=== PATIENT | female | born 1975 | race Caucasian/White ===

== ENCOUNTER 2018-11-11 07:18 | Outpatient (CLI) | payer OTHER ==
--- NOTE | 2018-11-11 10:11 | Ultrasound Report ---
Reason: DYSEQUILIBRIUM,IRREGULAR MENSES Procedure Date: 11/11/2018 Accession Number: [id number] / [id number] Procedure: US - Pelvic w/Transvaginal CPT Code: FULL RESULT: EXAM: PELVIC ULTRASOUND EXAM DATE: 11/11/2018 07:30 AM. CLINICAL HISTORY: Dysequilibrium, irregular menses. COMPARISON: None. TECHNIQUE: Realtime transabdominal pelvic scan performed to identify the uterus and adnexa and as an overview of other pelvic structures, followed by transvaginal scan to provide greater detail of the uterus and adnexa, with static image documentation. FINDINGS: Uterus: 10.0 x 5.2 x 6.6 cm, volume 180 cc. Anteverted position. Heterogeneous parenchyma with calcifications. Masses: Multiple myometrial masses are identified including an anterior fundal intramural 3.2 x 3.0 x 3.0 cm mass which appears to abut the endometrium, submucosal component of the suspected fibroid. Additionally, posterior fundal intramural mass measuring 1.4 x 1.1 x 1.9 cm. Endometrium: 6.5 mm. Mildly distorted appearance in the fundal region as described above. Cervix: Unremarkable. Right Ovary: Not seen. Left Ovary: 2.6 x 1.7 x 1.9 cm, volume 4.4 cc. Normal echotexture and blood flow. Free Fluid: None. Other: None. IMPRESSION: Fibroid uterus with an anterior fundal myometrial fibroid demonstrating submucosal component. RADIA
--- NOTE | 2018-11-11 14:25 | MRI Report ---
Reason: DYSEQUILIBRIUM,IRREGULAR MENSES Procedure Date: 11/11/2018 Accession Number: [id number] / [id number] Procedure: MRI - Brain W/O CPT Code: FULL RESULT: EXAM: MRI BRAIN WITHOUT CONTRAST EXAM DATE: 11/11/2018 09:24 AM. CLINICAL HISTORY: Dysequilibrium, irregular menses. COMPARISON: None. TECHNIQUE: Multiplanar, multisequence T1-weighted and fluid-sensitive MR sequences of the brain were performed. Sequences optimized for routine evaluation. Other: None. IV Contrast: None. FINDINGS: Brain Volume: Normal for age. Parenchyma/Dura: No mass, acute infarct or hemorrhage. There are a few scattered punctate foci of T2/FLAIR bright white matter signal predominating peripherally in the cerebral hemispheres. No cortical signal abnormality. Ventricles/Cisterns: The ventricles, sulci, and cisterns are unremarkable. No abnormal extra-axial fluid collection or hemorrhage. Orbits: Symmetric and unremarkable. Sella Turcica: The pituitary gland, cavernous sinuses, suprasellar cistern and optic chiasm are unremarkable. IAC: Symmetric and unremarkable. Vasculature: Normal signal flow void is seen in the major arterial structures at the skull base. Sinuses: No acute appearing sinus disease. Bones: No focal pathologic appearing marrow signal changes. Other: None. IMPRESSION: 1. Negative noncontrast MRI of the brain. No acute abnormality. No infarct, mass, or hemorrhage. 2. There are a few scattered punctate foci of T2/FLAIR bright white matter signal seen in the cerebral hemispheres. This is nonspecific. This can be seen in patients with migraine headaches or sequela of small vessel ischemic change. RADIA
== END 2018-11-11 07:19 | disposition home or self-care (01) ==
LOC: DI 07:18
PROVIDERS: ATTEND Physician Assistant
DX: R42 Dizziness and giddiness (principal); N92.6 Irregular menstruation, unspecified; D25.0 Submucous leiomyoma of uterus
CPT/HCPCS: 70551; 76830; 76856

== ENCOUNTER 2018-12-02 13:44 | Outpatient (CLI) | payer OTHER ==
[2018-12-02 14:06] LABS: HGB - HEMOGLOBIN 14.9 g/dL (12.0-16.0); MEAN CORPUSCULAR HEMOGLOBIN 33.5 pg (27.0-31.0); MEAN CORPUSCULAR HGB CONC 34.5 g/dL (32.0-36.0); MEAN CORPUSCULAR VOLUME 96.8 fL (81.0-99.0); MEAN PLATELET VOLUME 7.4 fL (7.9-10.8); RED BLOOD COUNT 4.45 10^6/uL (4.20-5.40); RED CELL DISTRIBUTION WIDTH 12.7 % (12.0-15.0); WHITE BLOOD COUNT 6.8 x10^3/uL (4.8-10.8)
== END 2018-12-02 13:45 | disposition home or self-care (01) ==
LOC: LAB 13:44
PROVIDERS: ATTEND Obstetrics & Gynecology
DX: N93.9 Abnormal uterine and vaginal bleeding, unspecified (principal)
CPT/HCPCS: 36415; 84443; 85027

== ENCOUNTER 2019-09-12 09:52 | Outpatient (CLI) | payer OTHER ==
[2019-09-12 11:59] LABS: HGB - HEMOGLOBIN 15.2 g/dL (12.0-16.0); MEAN CORPUSCULAR HEMOGLOBIN 32.1 pg (27.0-31.0); MEAN CORPUSCULAR HGB CONC 32.8 g/dL (32.0-36.0); MEAN CORPUSCULAR VOLUME 97.9 fL (81.0-99.0); MEAN PLATELET VOLUME 9.8 fL (7.9-10.8); RED BLOOD COUNT 4.74 10^6/uL (4.20-5.40); RED CELL DISTRIBUTION WIDTH 11.9 % (12.0-15.0); WHITE BLOOD COUNT 6.3 x10^3/uL (4.8-10.8)
== END 2019-09-12 23:59 | disposition home or self-care (01) ==
LOC: LAB.WCP 09:52
PROVIDERS: ATTEND Obstetrics & Gynecology
DX: N92.1 Excessive and frequent menstruation with irregular cycle (principal)
CPT/HCPCS: 36415; 85025; 85027

== ENCOUNTER 2019-09-26 16:16 | Outpatient (CLI) | payer OTHER ==
[2019-09-26 16:52] LABS: ALBUMIN 5.1 g/dL (3.2-5.5); ALBUMIN/GLOBULIN RATIO 1.9 (1.0-2.2); BILIRUBIN,TOTAL 0.6 mg/dL (0.2-1.0); CALCIUM 9.4 mg/dL (8.5-10.3); CREATININE 0.7 mg/dL (0.4-1.0); TOTAL PROTEIN 7.8 g/dL (6.7-8.2)
== END 2019-09-26 16:17 | disposition home or self-care (01) ==
LOC: LAB 16:16
PROVIDERS: ATTEND Obstetrics & Gynecology
DX: Z01.812 Encounter for preprocedural laboratory examination (principal); D25.9 Leiomyoma of uterus, unspecified
CPT/HCPCS: 36415; 80053; 86850; 86900; 86901

== ENCOUNTER 2019-09-28 08:59 | Day surgery (SDC) | payer OTHER ==
[~2019-09-28 08:59] MED LIST: ACETAMINOPHEN 1,000 MG/100 ML 100 ML IV ONE; CEFAZOLIN SODIUM IN 0.9 % NACL 2 GM/100 ML BAG IV ONE; CELECOXIB 100 MG CAPSULE PO ONE; GABAPENTIN 400 MG CAPSULE ONE
[2019-09-28] MEDS ORDERED: LIDOCAINE 1%-EPI 1:100000 20 ML MDV ONE (09:32)
[2019-09-28] MEDS ORDERED: METHYLENE BLUE 0.5% 50 MG/10 ML AMPULE ONE (09:33)
[2019-09-28] MEDS ORDERED: LACTATED RINGERS 1,000 ML IV ONE ×2 (09:43→14:50)
--- NOTE | 2019-09-28 10:03 | ANESTHESIA ---
Pre-Anesthesia VS, & Labs - Diagnosis Uterine Fibroids - Procedure LAVH, B salpingectomy, cystoscopy, possible TLH Vital Signs: Temp Pulse Resp BP Pulse Ox 36.7 C 120 H 18 125/90 H 100 09/28/19 09:11 09/28/19 09:11 09/28/19 09:11 09/28/19 09:11 09/28/19 09:11 Height 5 ft 4 in Weight (kg) 60.9 kg - NPO Last Fluid Intake: sips w/meds 0900 - Is Patient ?: No - Lab Results Lab results reviewed: Yes Home Medications and Allergies No Known Home Medications 09/14/19 Allergies/Adverse Reactions: Allergies Allergy/AdvReac Type Severity Reaction Status Date / Time No Known Drug Allergies Allergy Verified 09/14/19 15:51 Anes History & Medical History - Anesthetic History Anesthesia Complications: reports: No previous complications Family history of Anesthesia Complications: Denies Family history of Malignant Hyperthermia: Denies - Medical History Cardiovascular: reports: None Pulmonary: reports: None Gastrointestinal: reports: None Urinary: reports: None Musculoskeletal: reports: Osteoarthritis Endocrine/Autoimmune: reports: None Skin: reports: Eczema, Other Smoking Status: Current every day smoker - Surgical History Gynecologic: Tubal ligation Exam General: Alert, Oriented x3, Cooperative Dental: WNL Mouth Openin Fingerbreadth Neck Mobility: Normal Mallampati classification: I Thyromental Distance: 4-6 cm Respiratory: Lungs clear, Normal breath sounds, No respiratory distress Cardiovascular: Regular rate (tachy) Neurological: Normal speech Mental/Cognitive Status: Alert/Oriented X3, Normal for patient Cognitive Status: Within normal limits Plan Anesthesia Type: General Consent for Procedure(s) Verified and Reviewed: Yes Code Status: Attempt Resuscitation ASA classification: 2-Mild systemic disease Is this case an emergency?: No
[2019-09-28] MEDS ORDERED: BUPIVACAINE 0.25% PF 30 ML VIAL ONE (10:33)
[2019-09-28] MEDS ORDERED: BUPIVACAINE 0.5% PF 30 ML VIAL ONE (11:01)
[2019-09-28] MEDS ORDERED: LIDOCAINE MPF 2%-EPI 1:200000 20 ML VIAL ONE (11:01)
[2019-09-28] MEDS ORDERED: ONDANSETRON 4 MG/2 ML VIAL IVP ONE (12:58)
[2019-09-28] MEDS ORDERED: fentaNYL 250 MCG/5 ML VIAL IVP ONE (12:58)
[2019-09-28] MEDS ORDERED: PHENYLEPHRINE 10 MG/ML VIAL IV ONE (12:58)
[2019-09-28] MEDS ORDERED: DEXAMETHASONE 4 MG/ML VIAL IVP ONE (12:58)
[2019-09-28] MEDS ORDERED: MIDAZOLAM 2 MG/2 ML VIAL IVP ONE (12:58)
[2019-09-28] MEDS ORDERED: LIDOCAINE-MPF 2% 5 ML VIAL IM ONE ×3 (12:58→13:26)
[2019-09-28] MEDS ORDERED: NEOSTIGMINE 1 MG/1 ML 10 ML MDV IVP ONE (12:58)
[2019-09-28] MEDS ORDERED: PROPOFOL 200 MG/20 ML VIAL IVP ONE (12:58)
[2019-09-28] MEDS ORDERED: GLYCOPYRROLATE 1 MG/5 ML VIAL IVP ONE (12:58)
[2019-09-28] MEDS ORDERED: ACETAMINOPHEN 1,000 MG/100 ML 100 ML IV ONE (12:58)
[2019-09-28] MEDS ORDERED: ROCURONIUM 50 MG/5 ML VIAL IVP ONE (12:58)
[2019-09-28] MEDS ORDERED: ONDANSETRON 4 MG/2 ML VIAL IVP PRN (16:27)
--- NOTE | 2019-09-28 16:38 | OPERATIVE REPORT ---
Operative Report - General Procedure Date: 09/28/19 Planned Procedure: TLH with BS and Cysto Pre-Op Diagnosis: Fibroid uterus Procedure Performed: TLH with BS and Cysto Post Op Diagnosis: Same - Procedure Note Primary Surgeon: Anson Díaz MD Secondary Surgeon: Jeana Emmanuel MD Anesthesia Provider: Roger Ibrahim CRNA Anesthesia Technique: General ET tube Pathology: Uterus with tubes IV Fluids (mL): 1,100 Estimated Blood Loss (mL): 25 Urine Output (mL): 350 Complications: Stich in the bladder. Detected with cystoscopy and removed intraoperative.
[2019-09-28] MEDS: KETOROLAC 30 MG/ML VIAL IVP PRN (19:04)
[2019-09-28] MEDS: oxyCODONE 5 MG TABLET PO PRN (20:28)
--- NOTE | 2019-09-28 21:07 | OPERATIVE REPORT ---
DATE OF SERVICE: 09/28/2019 Physician: Anson Díaz MD PREOPERATIVE DIAGNOSIS: Fibroid uterus. POSTOPERATIVE DIAGNOSIS: Fibroid uterus. PROCEDURE PERFORMED: Total laparoscopically assisted hysterectomy with bilateral salpingectomy and c ystoscopy. SURGEON: Anson Díaz MD DOLL WIG MAKER: Ariella Emmanuel MD ANESTHESIA PROVIDER: RAY Kerr ANESTHESIA: General via an endotracheal tube. FINDINGS: Normal pelvis with enlarged uterus. Initially, there was evidence of stitches in the blad chad, which was removed. Normal tubes and ovaries. ESTIMATED BLOOD LOSS: 25 mL IV FLUIDS: 1100 mL URINE OUTPUT: 350 mL FINDINGS: Upon entering the abdominal cavity, she had evidence of a fibroid uterus, which was enlarg ed. The tubes and ovaries appeared to be free of disease. There was evidence of what appeared to be Filshie clips on both tubes. PROCEDURE IN DETAIL: Following adequate endotracheal anesthesia, patient placed in dorsal lithotomy position. She was then prepped and draped in the usual fashion. At this point, a timeout was perfor med, which concerns were addressed. A stab wound was made in the subumbilical region with a #11 blad e following local anesthetic with 0.25% Marcaine with 1% lidocaine with epinephrine. A 5 mm trocar w as placed on the first pass. Two additional ports were placed, both in left and right lower quadrant s following local anesthesia with Marcaine and lidocaine with epinephrine following skin incisions. These ports were placed under direct visualization. A speculum was placed in the vagina. The cervix was visualized, grasped with a single-tooth tenaculum. It was then dilated up to 8 mm and then a ut erine manipulator was placed without difficulty. At this point, the trocars were placed in the subum bilical area, as well as left and right lower quadrant following local anesthesia with 0.25% Marcaine with epinephrine and 1% lidocaine. At this point, the pelvis was visualized. The right fallopian t ube was grasped with a Prestige and then the mesosalpinx was cauterized and transected using the Liga Sure. This was carried all the way to the cornu. Care was taken to minimize any injury to the vascu larity to the ovaries. At this point, the uteroovarian ligament was cauterized, transected, as well as the round ligament being cauterized and transected. The broad ligament was then cauterized and tr ansected and then opened across the lower uterine segment. The left side was treated in identical fa shion. The fimbriated end was grasped with a Prestige and the LigaSure was used to cauterize and tra nsect the mesosalpinx all the way to the cornua. Then, the uteroovarian ligament was cauterized and transected. The round ligament was cauterized and transected. The broad ligament was then opened an teriorly and then carried across the lower uterine segment. The posterior leaf of the round ligament was likewise cauterized and transected. The bladder flap was then developed. The uterine vessels w ere cauterized and transected bilaterally. At this point, a Harmonic scalpel was used to amputate th e cervix from the apex of the vagina. There was evidence of good hemostasis. At this point, the [place] was then brought out of the vagina and an Asepto bulb was placed in the vagina to maintain a pneu mothorax. The apex of the vagina was then closed utilizing V-Loc suture with an intracorporeal sutur ing. Cystoscopy was performed. At this point, there was evidence of a stitch in the bladder. Then, the laparoscopic equipment was replaced and the single stitch was cut and the stitch in the bladder was removed. There was evidence of good ureter flow from both ureteral orifices. The incisions were closed using Rajesh-Nasima in the right lower quadrant as well as a subcuticular stitch of 4-0 Mon ocryl and then Dermabond. Lezama catheter was then placed for drainage because of the previous stitch placement. Patient tolerated the procedure well and was taken to recovery in stable condition. Spo nge and needle counts were correct. TD: 09/28/2019 19:05
[2019-09-28] MEDS ORDERED: SODIUM CHLORIDE 0.9% 500 ML IV ONE ×2 (21:41→22:43)
[2019-09-28] MEDS ORDERED: SODIUM CHLORIDE 0.9% 500 ML ONE (22:47)
[2019-09-28 23:07] LABS: BASOPHILS % (AUTO) 0.2 %; HGB - HEMOGLOBIN 12.7 g/dL (12.0-16.0); LYMPHOCYTES # (AUTO) 0.7 10^3/uL (1.5-3.5); LYMPHOCYTES % (AUTO) 6.1 %; MEAN CORPUSCULAR HEMOGLOBIN 32.2 pg (27.0-31.0); MEAN CORPUSCULAR VOLUME 94.7 fL (81.0-99.0); MEAN PLATELET VOLUME 9.5 fL (7.9-10.8); MONOCYTES # (AUTO) 0.8 10^3/uL (0.0-1.0); MONOCYTES % (AUTO) 7.1 %; NEUTROPHILS % (AUTO) 86.1 %; PLT - PLATELET COUNT 184 10^3/uL (130-450); RED BLOOD COUNT 3.95 10^6/uL (4.20-5.40); RED CELL DISTRIBUTION WIDTH 11.4 % (12.0-15.0); WHITE BLOOD COUNT 11.7 x10^3/uL (4.8-10.8)
[2019-09-28 23:17] LABS: CALCIUM 8.3 mg/dL (8.5-10.3); CREATININE 0.8 mg/dL (0.4-1.0)
[2019-09-29] MEDS: oxyCODONE 5 MG TABLET PO PRN ×2 (03:46→11:03)
[2019-09-29 05:09] LABS: BASOPHILS % (AUTO) 0.3 %; EOSINOPHILS % (AUTO) 0.1 %; HGB - HEMOGLOBIN 12.7 g/dL (12.0-16.0); LYMPHOCYTES # (AUTO) 1.1 10^3/uL (1.5-3.5); LYMPHOCYTES % (AUTO) 9.7 %; MEAN CORPUSCULAR HEMOGLOBIN 33.3 pg (27.0-31.0); MEAN CORPUSCULAR HGB CONC 34.1 g/dL (32.0-36.0); MEAN CORPUSCULAR VOLUME 97.6 fL (81.0-99.0); MEAN PLATELET VOLUME 9.9 fL (7.9-10.8); MONOCYTES % (AUTO) 8.7 %; NEUTROPHILS # (AUTO) 9.5 10^3/uL (1.5-6.6); NEUTROPHILS % (AUTO) 80.8 %; PLT - PLATELET COUNT 181 10^3/uL (130-450); RED BLOOD COUNT 3.81 10^6/uL (4.20-5.40); RED CELL DISTRIBUTION WIDTH 11.7 % (12.0-15.0); WHITE BLOOD COUNT 11.8 x10^3/uL (4.8-10.8)
--- NOTE | 2019-09-29 08:36 | PROVIDER PROGRESS NOTE ---
Subjective - General Procedure Date: 09/28/19 Post Op Days: 1 Procedure Performed: TLH with BS and cysto - Review of Systems Wound/Incisions: positive: Healing well General: positive: No symptoms HEENT: positive: No symptoms Pulmonary: positive: No symptoms Cardiovascular: positive: No symptoms Gastrointestinal: positive: No symptoms, Flatus Genitourinary: positive: No symptoms Objective - Patient Data Reviewed Vital Signs: Yes Vital Signs: Vital Signs x48h Temp Pulse Resp BP Pulse Ox 09/29/19 08:08 36.4 C L 109 H 18 98 09/29/19 07:40 36.7 C 110 H 18 103/65 96 09/29/19 05:57 36.4 C L 109 H 18 113/62 97 09/29/19 03:38 36.9 C 127 H 16 100/58 L 96 Weight: Weight 09/27/19 09/28/19 09/29/19 23:59 23:59 23:59 Weight (kg) 60.9 kg Intake & Output: Intake and Output Totals x24h 09/27/19 09/28/19 09/29/19 23:59 23:59 23:59 Intake Total 3300 Output Total 1075 375 Balance 2225 -375 - Lab Results Lab Results: 09/29/19 04:35 09/28/19 22:50 Other Lab Results: Lab Results x24hrs 09/29/19 09/29/19 09/28/19 Range/Units 05:55 04:35 22:50 WBC 11.8 H (4.8-10.8) x10^3/uL RBC 3.81 L (4.20-5.40) 10^6/uL Hgb 12.7 (12.0-16.0) g/dL Hct 37.2 (37.0-47.0) % MCV 97.6 (81.0-99.0) fL MCH 33.3 H (27.0-31.0) pg MCHC 34.1 (32.0-36.0) g/dL RDW 11.7 L (12.0-15.0) % Plt Count 181 (130-450) 10^3/uL MPV 9.9 (7.9-10.8) fL Neut # (Auto) 9.5 H (1.5-6.6) 10^3/uL Lymph # (Auto) 1.1 L (1.5-3.5) 10^3/uL [place] # (Auto) 1.0 (0.0-1.0) 10^3/uL Eos # (Auto) 0.0 (0.0-0.7) 10^3/uL Baso # (Auto) 0.0 (0.0-0.1) 10^3/uL Absolute Nucleated RBC 0.00 x10^3/uL Nucleated RBC % 0.0 /100WBC Sodium 138 (135-145) mmol/L Potassium 3.9 (3.5-5.0) mmol/L Chloride 102 (101-111) mmol/L Carbon Dioxide 27 (21-32) mmol/L Anion Gap 9.0 (6-13) BUN 15 (6-20) mg/dL Creatinine 0.8 (0.4-1.0) mg/dL Estimated GFR (MDRD) 78 L (>89) Glucose 213 H (70-100) mg/dL POC Whole Bld Glucose 107 H (70 - 100) mg/dL Calcium 8.3 L (8.5-10.3) mg/dL 09/28/19 Range/Units 22:50 WBC 11.7 H (4.8-10.8) x10^3/uL RBC 3.95 L (4.20-5.40) 10^6/uL Hgb 12.7 (12.0-16.0) g/dL Hct 37.4 (37.0-47.0) % MCV 94.7 (81.0-99.0) fL MCH 32.2 H (27.0-31.0) pg MCHC 34.0 (32.0-36.0) g/dL RDW 11.4 L (12.0-15.0) % Plt Count 184 (130-450) 10^3/uL MPV 9.5 (7.9-10.8) fL Neut # (Auto) 10.0 H (1.5-6.6) 10^3/uL Lymph # (Auto) 0.7 L (1.5-3.5) 10^3/uL [place] # (Auto) 0.8 (0.0-1.0) 10^3/uL Eos # (Auto) 0.0 (0.0-0.7) 10^3/uL Baso # (Auto) 0.0 (0.0-0.1) 10^3/uL Absolute Nucleated RBC 0.00 x10^3/uL Nucleated RBC % 0.0 /100WBC Sodium (135-145) mmol/L Potassium (3.5-5.0) mmol/L Chloride (101-111) mmol/L Carbon Dioxide (21-32) mmol/L Anion Gap (6-13) BUN (6-20) mg/dL Creatinine (0.4-1.0) mg/dL Estimated GFR (MDRD) (>89) Glucose (70-100) mg/dL POC Whole Bld Glucose (70 - 100) mg/dL Calcium (8.5-10.3) mg/dL - Current Medications Current Medications: Current Medications Generic Name Dose Route Start Last Admin Trade Name Freq PRN Reason Stop Dose Admin Ketorolac Tromethamine 30 mg 09/28/19 16:31 09/28/19 19:04 Toradol Inj (30mg) IVP 10/03/19 16:30 30 mg Q6HR PRN Administration PAIN Oxycodone HCl 5 mg 09/28/19 16:27 09/29/19 03:46 Roxicodone PO 5 mg Q4HR PRN Administration PAIN - Physical Exam Wound/Incisions: positive: Healing well, Dressing dry and intact General Appearance: positive: No acute distress, Alert Respiratory: positive: Chest non-tender, No respiratory distress, Breath sounds nml Cardiovascular: positive: Regular rate & rhythm, No murmur, No gallop Abdomen: positive: Non-tender, Nml bowel sounds, No distention Back: negative: CVA tenderness (R), CVA tenderness (L) Extremities: positive: Other (SCD inplace). negative: Calf tenderness, Anh's sign/cords Impression/Plan - Problem List Problem List: POD #1 progressing. Send home
[2019-09-29] MEDS: KETOROLAC 30 MG/ML VIAL IVP PRN (09:53)
[2019-09-29 11:54] VITALS: BP 111/76
== END 2019-09-29 13:30 | disposition home or self-care (01) ==
LOC: SDS 08:59 → MS2 17:39 → SDS 09-29 13:30
PROVIDERS: ATTEND Obstetrics & Gynecology
PROC: 0UT74ZZ Resection of Bilateral Fallopian Tubes, Percutaneous Endoscopic Approach (ICD-10-PCS; 2019-09-28)
PROC: 0UT94ZZ Resection of Uterus, Percutaneous Endoscopic Approach (ICD-10-PCS; principal; 2019-09-28 10:30)
DX: D25.9 Leiomyoma of uterus, unspecified (principal); N93.9 Abnormal uterine and vaginal bleeding, unspecified; N92.6 Irregular menstruation, unspecified; T19.1XXA Foreign body in bladder, initial encounter; F17.210 Nicotine dependence, cigarettes, uncomplicated
CPT/HCPCS: 36415; 58571; 80048; 85025; 93005; A9270; J0131; J0690; J3010; J7120

== ENCOUNTER 2019-10-06 11:23 | Outpatient (CLI) | payer OTHER ==
--- NOTE | 2019-10-07 16:09 | Mammography Report ---
Reason: ROUTINE SCREENING Procedure Date: 10/06/2019 Accession Number: [id number] / [id number] Procedure: [facility]AC[facility] - Screening Mammo Dig Bilat CPT Code: Final Report FULL RESULT: EXAM: Screening Mammo Dig Bilat DATE: 10/06/2019 11:56 AM CLINICAL HISTORY: Screening encounter. TECHNIQUE: (B) - Bilateral CC, laterally exaggerated CC, MLO views were obtained. COMPARISON: 09/11/2015. PARENCHYMAL PATTERN: (A) - The breast(s) demonstrate(s) scattered fibroglandular densities. FINDINGS: There are no suspicious masses, calcifications, or areas of distortion. IMPRESSION: Negative examination. BI-RADS category 1. RECOMMENDATION: (ANNUAL) - Recommend routine annual screening mammography. BI-RADS CATEGORY: (1) - Negative. STANDARD QUALIFYING STATEMENTS: 1. This examination was not reviewed with the aid of Computer-Aided Detection (CAD). 2. A negative or benign imaging report should not preclude biopsy if clinically suspicious findings are present. 3. Dense breasts may obscure an underlying neoplasm. 4. This examination was reviewed without the aid of 3D breast imaging (tomosynthesis).
== END 2019-10-06 11:24 | disposition home or self-care (01) ==
LOC: DI 11:23
PROVIDERS: ATTEND Obstetrics & Gynecology
DX: Z12.31 Encounter for screening mammogram for malignant neoplasm of breast (principal)
CPT/HCPCS: 77067